=== PATIENT | female | born 1980 | race Caucasian/White ===

== ENCOUNTER → 2021-02-17 16:18 | Outpatient (BNVA) | payer SELFPAY | PROVIDERS: Family Provider Family Medicine; PCP Family Medicine; Visit Provider Family Medicine | DX: Z20.2 Contact with and (suspected) exposure to infections with a predominantly sexual mode of transmission (principal) | CPT/HCPCS: 87491; 87591; 87661 ==

== ENCOUNTER → 2021-06-04 10:33 | Outpatient (BNVA) | payer SELFPAY | PROVIDERS: Family Provider Family Medicine; PCP Family Medicine; Visit Provider Nurse Practitioner Family | DX: Z20.822 Contact with and (suspected) exposure to COVID-19 (principal); R05.9 Cough, unspecified | CPT/HCPCS: 87486; 87581; 87633 ==

== ENCOUNTER → 2021-08-19 14:40 | Outpatient (BNVA) | payer BC, SELFPAY | PROVIDERS: Family Provider Family Medicine; PCP Family Medicine; Visit Provider Family Medicine | DX: F90.9 Attention-deficit hyperactivity disorder, unspecified type (principal); Z13.1 Encounter for screening for diabetes mellitus; R53.83 Other fatigue; N92.6 Irregular menstruation, unspecified; Z13.6 Encounter for screening for cardiovascular disorders | CPT/HCPCS: 80053; 80061; 83001; 83002; 84443; 85025 ==

== ENCOUNTER → 2023-03-19 15:45 | Outpatient (BNVA) | payer OTHER, SELFPAY | PROVIDERS: Family Provider Family Medicine; PCP Family Medicine; Visit Provider Emergency Medicine | DX: R30.0 Dysuria (principal); N39.0 Urinary tract infection, site not specified; N12 Tubulo-interstitial nephritis, not specified as acute or chronic | CPT/HCPCS: 81000; 87077; 87086; 87184 ==

== ENCOUNTER 2023-04-11 12:49 | Emergency (ER) | payer OTHER, SELFPAY ==
[2023-04-11 13:08] VITALS: BP 99/69; PULSE 65; RESP 15; TEMP 36.7; O2SAT 100; BMI 31.7
--- NOTE | 2023-04-11 14:40 | ED_ITS ---
HPI - Abdominal Pain 2 General: Chief Complaint: Abdominal Pain Stated Complaint: abd pain Time Seen by Provider: 04/11/23 14:31 Source: patient Mode of arrival: ambulatory Limitations: no limitations History of Present Illness: Patient is a 42-year-old female with history of anxiety who presents to the emergency department complaining of urinary changes onset greater than a week. Patient states she was recently treated for UTI a few weeks ago and when she was diagnosed Bactrim and has since finished the regimen. Upon review of her recent provider notes, she was diagnosed with pyelonephritis despite not having any imaging. Culture resulted in E. coli. She now reports that she is having continuing suprapubic pain associated with continued urinary urgency and burning with urination. She is also now reporting a headache with associated ear pain and jaw pain. She is also complaining of fatigue. She says she has had a normal appetite and has been hydrating well. She denies any blood in her urine or foul odor. She further denies any chest pain, breathing difficulty, palpitations, or any other symptoms. She states that she did have 2 episodes last night of presyncope where she got dizzy and lightheaded, stating that the room was spinning around her. MD elicited complaint: abdominal pain Pertinent past history: past UTI Onset (ago): week(s) Pain Consistency: constant Location: Suprapubic Associated Symptoms: Reports dysuria and nausea; Denies chills, constipation, diarrhea, fever(s), hematuria and vomiting Related Data: Date of Last Menstrual Period: 02/28/23 Review of Systems 2 Const: Reports: fatigue; Denies: fever(s), chills or change in appetite Eyes: Denies: change in vision or blurry vision ENMT: Reports: ear or mastoid pain and other (jaw pain) Card: Reports: lightheadedness; Denies: chest pain or palpitations Resp: Denies: dyspnea or non-productive cough GI: Reports: abdominal pain and nausea; Denies: vomiting, diarrhea or constipation : Reports: dysuria, urinary frequency and urinary urgency; Denies: flank pain or hematuria Musc: Denies: neck pain or back pain Skin/Breast: Denies: rash Neuro: Reports: headache(s) and dizziness [facility] ED 2 PFSH: Medical History Adult ADHD Surgical History History of cholecystectomy 2019 History of tubal ligation 2008 Social History Smoking and tobacco/nicotine status: never used tobacco/nicotine Alcohol intake: never Substance/Drug Use: never Adopted: No Caregiver/support person: No Lives independently: No Household members: children service: No Current occupational status: employed Sexually active: Yes Do you think of yourself as: Straight/Heterosexual Current gender identity: Female Female Reproductive History: Date of last menstrual period: 02/28/23 Physical Exam 2 Const: COMMON NORMALS: no acute distress GENERAL APPEARANCE: cooperative and comfortable ORIENTATION/CONSCIOUSNESS: Yes awake, Yes oriented to person, Yes oriented to place and Yes oriented to time HENMT: COMMON NORMALS: normocephalic, atraumatic and hearing grossly normal bilaterally HEAD & SCALP: normocephalic and atraumatic FACE & SINUS: n ormal facial exam MOUTH: Normal oral and palatal mucosa present Resp: COMMON NORMALS: normal respiratory effort, No retractions, No use of accessory muscles and clear to auscultation bilaterally AUSCULTATION: clear to auscultation bilaterally Cardio: COMMON NORMALS: regular rate, regular rhythm and No murmurs present (Cardio) RATE: regular rate RHYTHM: regular rhythm GI: COMMON NORMALS: Soft to palpation and No hepatosplenomegaly present A USCULTATION: Yes normoactive bowel sounds PALPATION: Yes Soft to palpation, Yes Tenderness to palpation present (GI) (mild suprapubic TTP), No Guarding due to palpation present (GI) and Yes No hepatosplenomegaly present : COMMON NORMALS: Yes no CVA tenderness BLADDER/KIDNEY EXAM: Yes no CVA tenderness Back/Pelvis: COMMON NORMALS: no CVA tenderness Extremity: COMMON NORMALS: normal to inspection, capillary refill normal, no clubbing, cyanosis or edema, no calf tenderness and no pedal edema Neuro: SENSORIUM/ORIENTATION: Yes oriented to person, Yes oriented to place and Yes oriented to time Skin: COMMON NORMALS: no rashes or lesions noted GENERAL SKIN EXAM: no rashes or lesions noted Course 2 Vital Signs: Vital signs: Vital Signs Temperature 98.1 F 04/11/23 13:08 Pulse Rate 67 04/11/23 16:55 Respiratory Rate 18 04/11/23 16:55 Blood Pressure 105/72 04/11/23 16:55 Pulse Oximetry 99 04/11/23 16:55 Oxygen Delivery Me thod Room Air 04/11/23 15:10 MDM - Abdominal Pain Medical Decision Making No cystitis on UA. She does have some orthostasis is improved with IV fluids. Discharge home recommend she follow-up with her primary care doctor within the next week return if has further problems. Medical Records I reviewed the patient's medical records. Lab Data I reviewed the patient's lab results. 04/11/23 15:00 04/11/23 15:00 Labs/Radiology: Laboratory Results WBC 5.55 10^3/uL (3.29-11.43) 04/11/23 15:00 RBC 4.12 10^6/uL (3.85-5.65) 04/11/23 15:00 Hgb 13.30 g/dL (11.27-16.99) 04/11/23 15:00 Hct 40.9 % (36-47) 04/11/23 15:00 MCV 99.3 fl (85-98) H 04/11/23 15:00 MCH 32.3 pg (27-33) 04/11/23 15:00 MCHC 32.5 g/dL (30-55) 04/11/23 15:00 RDW 13.0 % (12.1-15.1) 04/11/23 15:00 Plt Count 297 10^3/cmm (157-399) 04/11/23 15:00 MPV 10.1 fL (7.4-10.4) 04/11/23 15:00 Neut % (Auto) 48.9 % 04/11/23 15:00 Lymph % (Auto) 39.5 % 04/11/23 15:00 [place] % (Auto) 9.5 % 04/11/23 15:00 Eos % (Auto) 1.3 % 04/11/23 15:00 Baso % (Auto) 0.4 % 04/11/23 15:00 Neut # (Auto) 2.72 10^3/uL (1.8-7.7) 04/11/23 15:00 Lymph # (Auto) 2.2 10^3/uL (0.8-4.8) 04/11/23 15:00 [place] # (Auto) 0.5 10^3/uL (0.2-0.9) 04/11/23 15:00 Eos # (Auto) 0.1 10^3/uL (0.0-0.8) 04/11/23 15:00 Baso # (Auto) 0.0 10^3/uL (0.0-0.1) 04/11/23 15:00 Nucleated RBC % (auto) 0 % 04/11/23 15:00 Nucleated RBCs # 0.0 /100WBC 04/11/23 15:00 Sodium 139 mmol/L (136-145) 04/11/23 15:00 Potassium 4.0 mmol/L (3.5-5.1) 04/11/23 15:00 Chloride 105 mmol/L (98-107) 04/11/23 15:00 Carbon Dioxide 23 mmol/L (22-29) 04/11/23 15:00 Anion Gap 15.0 (5-19) 04/11/23 15:00 BUN 8 mg/dL (6-20) 04/11/23 15:00 Creatinine 0.9 mg/dL (0.5-0.9) 04/11/23 15:00 GFR Calculation 68.3 mL/min (90-130) L 04/11/23 15:00 Glucose 103 mg/dL (65-115) 04/11/23 15:00 Calculated Osmolality 287 mOsm/kg (285-295) 04/11/23 15:00 Calcium 9.1 mg/dL (8.5-10.5) 04/11/23 15:00 Total Bilirubin 0.2 mg/dL (0.15-1.2) 04/11/23 15:00 AST 12 U/L (0-32) 04/11/23 15:00 ALT 26 U/L (0-33) 04/11/23 15:00 Alkaline Phosphatase 91 U/L (35-105) 04/11/23 15:00 Total Protein 6.9 g/dL (6.6-8.7) 04/11/23 15:00 Albumin 4.1 g/dL (3.5-5.2) 04/11/23 15:00 Globulin 2.8 g/dL (1.3-4.6) 04/11/23 15:00 Lipase 24 U/L (13-60) 04/11/23 15:00 HCG, Qual Negative (Negative) 04/11/23 15:00 Urine Color Light yellow (Yellow) 04/11/23 15:29 Urine Appearance Clear (CLEAR) 04/11/23 15:29 Urine pH 5 (5-7) 04/11/23 15:29 Ur Specific [place] 1.015 (1.005-1.030) 04/11/23 15:29 Urine Protein Neg (Negative) 04/11/23 15:29 Urine Glucose (UA) Norm (Normal) 04/11/23 15:29 Urine Ketones Negative (Negative) 04/11/23 15: Urine Blood Neg (Negative) 04/11/23 15: Urine Nitrate Negative (Negative) 04/11/23 15:29 Urine Bilirubin Neg (Negative) 04/11/23 15:29 Urine Urobilinogen Norm mg/dL (Negative) 04/11/23 15:29 Ur Leukocyte Esterase Negative (Negative) 04/11/23 15:29 No radiology studies performed this visit Discharge Plan Discharge Patient Disposition: Home Clinical Impression: Orthostasis Condition: Stable Prescriptions: No Action fluticasone propionate [Flonase Allergy Relief] 50 mcg/actuation spray,suspension 1 spray INTRANASAL BID [id number] [Fioricet] 50-300-40 mg capsule 1 cap PO Q8H PRN cyclobenzaprine 10 mg tablet 10 mg PO dextroamphetamine-amphetamine 10 mg tablet 10 mg PO hydroxyzine HCl 25 mg tablet 50 mg PO zolpidem 10 mg tablet 10 mg PO sertraline 50 mg tablet 50 mg PO phenazopyridine [Pyridium] 200 mg tablet 200 mg PO Q8H PRN (Reason: pain) Qty: 6 0RF sulfamethoxazole-trimethoprim [Bactrim DS] 800-160 mg tablet 1 tab PO BID 10 Days Qty: 20 0RF ondansetron 8 mg tablet,disintegrating 8 mg PO Q8H PRN (Reason: nausea and vomiting) 3 Days Qty: 9 0RF tizanidine 4 mg capsule See Rx Instructions .ROUTE .COMPLEX Qty: 60 0RF Dose Instruction: TAKE 1 CAPSULE BY MOUTH TWICE DAILY NEEDED FOR MUSCLE SPASMS Rx Instructions: TAKE 1 CAPSULE BY MOUTH TWICE DAILY NEEDED FOR MUSCLE SPASMS ondansetron 4 mg tablet,disintegrating 4 mg PO Q6H PRN (Reason: nausea and vomiting) Qty: 14 0RF Discharge Orders: Discharge ED (Routine); Ordered 04/11/23 Ordered By: Kevin Tavera Referrals: Dominic Rea DO [Primary Care Provider] - Discharge Diet: Usual diet Discharge Activity: Increase activity as tolerated Patient Instructions: Opioid Safety, Pain Management Activity Restrictions/Additional Instructions: Thank you for choosing [facility] for your healthcare needs today. Please realize this is an emergency room and that we are providing you with a medical screening exam and this may not be complete and all inclusive of all the testing and or work up that you may need to determine your ailment or severity of your illness. It is very important that you follow up as instructed or that you return to the Emergency Department should you have concerns or if your condition changes or worsens in any way. You were seen today for weakness generalized not feeling well migraine. There is no evidence of UTI your laboratory studies were normal. Initial evaluation your blood pressure did drop when you stood but that improved after IV fluids were given. At this point there is no emergent condition recommend you follow- up with your primary care doctor within the next week. Coding Level of Care Code ED Resident Services Coordinator for Aldo Miller
[2023-04-11 14:48] VITALS: BP 103/63; PULSE 60; RESP 18; O2SAT 100
[2023-04-11 15:07] LABS: Basophils % 0.4 %; Eosinophils # 0.1 10^3/uL (0.0-0.8); Eosinophils % 1.3 %; Hematocrit 40.9 % (36-47); Lymphocytes # 2.2 10^3/uL (0.8-4.8); Lymphocytes % 39.5 %; Mean Corpuscular HGB Conc 32.5 g/dL (30-55); Mean Corpuscular Hemoglobin 32.3 pg (27-33); Mean Corpuscular Volume 99.3 fl (85-98); Mean Platelet Volume 10.1 fL (7.4-10.4); Monocytes # 0.5 10^3/uL (0.2-0.9); Monocytes % 9.5 %; Neutrophils # 2.72 10^3/uL (1.8-7.7); Neutrophils % 48.9 %; Nucleated Red Blood Cells % 0 %; Platelet Count 297 10^3/cmm (157-399); Red Blood Count 4.12 10^6/uL (3.85-5.65); White Blood Count 5.55 10^3/uL (3.29-11.43)
[2023-04-11 15:10] VITALS: BP 93/61; PULSE 78; RESP 18; O2SAT 100
[2023-04-11 15:34] LABS: HCG, Serum Qual Negative (Negative)
[2023-04-11 15:36] LABS: Add Urine Microscopic? NO; Charge for UA Resulting for Rev
[2023-04-11 15:44] LABS: Alanine Aminotransferase 26 U/L (0-33); Albumin Level 4.1 g/dL (3.5-5.2); Alkaline Phosphatase 91 U/L (35-105); Aspartate Amino Transferase 12 U/L (0-32); Blood Urea Nitrogen 8 mg/dL (6-20); Calcium 9.1 mg/dL (8.5-10.5); Carbon Dioxide 23 mmol/L (22-29); Chloride 105 mmol/L (98-107); Globulin 2.8 g/dL (1.3-4.6); Glomerular Filtration Rate 68.3 mL/min (90-130); Glucose 103 mg/dL (65-115); Lipase 24 U/L (13-60); Osmolality Calculated 287 mOsm/kg (285-295); Sodium 139 mmol/L (136-145); Total Bilirubin 0.2 mg/dL (0.15-1.2); Total Protein 6.9 g/dL (6.6-8.7)
[2023-04-11 15:45] LABS: Urine Color Light yellow (Yellow)
[2023-04-11] MEDS: sodium chloride 0.9% 1,000 ML 999 ML IV ×2 (15:45→17:15)
[2023-04-11 15:46] LABS: Bilirubin Urine Neg (Negative); Blood Urine Neg (Negative); Glucose Urine UA Norm (Normal); Ketones Urine Negative (Negative); Leukocyte Esterase Urine Negative (Negative); Nitrate Urine Negative (Negative); Protein Urine Neg (Negative); Specific Gravity, Urine 1.015 (1.005-1.030); Urine Appearance Clear (CLEAR); Urobilinogen Urine Norm (Negative); pH Urine 5 (5-7)
[2023-04-11 16:54] VITALS: BP 105/72; BP 86/56; BP 97/62; PULSE 67; PULSE 78
[2023-04-11 16:55] VITALS: BP 105/72; PULSE 67; RESP 18; O2SAT 99
== END 2023-04-11 17:57 | disposition home or self-care (01) ==
PROVIDERS: Physician Assistant; Emergency Provider Family Medicine; PCP Family Medicine
DX: I95.1 Orthostatic hypotension (principal)
CPT/HCPCS: 36415; 80053; 81003; 83690; 84703; 85025; 99284; J7030

== ENCOUNTER 2023-04-14 02:53 | Emergency (ER) | payer OTHER, SELFPAY ==
[2023-04-14 03:00] VITALS: BMI 30.7
--- NOTE | 2023-04-14 03:07 | W.ED.NAVMDI ---
HPI - Nausea/Vomiting/Diarrhea General: Chief complaint: Nausea/Vomiting/Diarrhea Stated complaint: Vomiting\Shakey Time Seen by Provider: 04/14/23 03:01 Source: patient Mode of arrival: ambulatory Limitations: no limitations History of Present Illness: 42-year-old female states she has had nausea and vomiting over the last 2 to 3 days. She states she has had constant vomiting feels like she is dehydrated has not been able to keep anything down. She is also had a mild headache states she is she is felt like her hearts been racing as well she denies any chest pain denies any shortness of breath. States she had vomited once today and had a slight amount of blood in it. Associated nausea: Yes Associated symtoms: Reports headache(s) and nausea; Denies chest pain or dysuria Review of Systems Const: Denies: fever(s), chills, body aches or change in appetite Eyes: Denies: blurry vision or eye discomfort ENMT: Denies: throat pain or dental pain Card: Denies: chest pain Resp: Denies: dyspnea GI: Reports: nausea and vomiting; Denies: diarrhea : Denies: dysuria Musc: Denies: neck pain or back pain Skin/Breast: Denies: rash Neuro: Reports: headache(s) PFSH ED PFSH: Medical History Adult ADHD Surgical History History of cholecystectomy 2019 History of tubal ligation 2008 Social History Smoking and tobacco/nicotine status: never used tobacco/nicotine Alcohol intake: never Substance/Drug Use: never Adopted: No Caregiver/support person: No Lives independently: No Household members: children service: No Current occupational status: employed Sexually active: Yes Do you think of yourself as: Straight/Heterosexual Current gender identity: Female Physical Exam Const: COMMON NORMALS: no acute distress, patient oriented x3 and healthy appearing HENMT: COMMON NORMALS: normocephalic and atraumatic HEAD & SCALP: normocephalic and atraumatic Eye: COMMON NORMALS: conjunctivae normal CONJUNCTIVA: Yes conjunctivae normal Neck/C-Spine: COMMON NORMALS: full ROM and supple Chest: COMMONS NORMALS: normal inspection of the chest and normal palpation of entire chest wall Resp: COMMON NORMALS: normal respiratory effort, No retractions, No use of accessory muscles and clear to auscultation bilaterally AUSCULTATION: clear to auscultation bilaterally Cardio: COMMON NORMALS: regular rhythm and No murmurs present (Cardio) RATE: tachycardic RHYTHM: regular rhythm GI: COMMON NORMALS: Normal to inspection, nondistended, normoactive bowel sounds present, Soft to palpation, non-tender and no masses PALPATION: Yes Soft to palpation Extremity: COMMON NORMALS: normal to inspection and full ROM Neuro: COMMON NORMALS: patient oriented x3, moves all extremities and no focal motor deficits Psych: COMMON NORMALS: mental status grossly normal, Normal thought process present and cooperative THOUGHT PROCESS: Normal thought process present Skin: COMMON NORMALS: no rashes or lesions noted and no wounds GENERAL SKIN EXAM: no rashes or lesions noted Course Vital Signs: Vital signs: Vital Signs Temperature 98.0 F 04/14/23 03:24 Pulse Rate 127 H 04/14/23 03:08 Respiratory Rate 17 04/14/23 03:08 Blood Pressure 149/98 04/14/23 03:08 Pulse Oximetry 100 04/14/23 03:08 MDM - Nausea/Vomiting/Diarrhea Medical Decision Making Patient presents here with nausea vomiting she feels much improved here after Reglan and Benadryl her heart rates improved to is now in the 90s blood works normal abdominal exam is benign we will prescribe her Zofran for home she is to follow-up and return if worsening. Medical Records I reviewed the patient's medical records. Lab Data I reviewed the patient's lab results. 04/14/23 03:13 04/14/23 03:13 Laboratory Results WBC 10.34 10^3/uL (3.29-11.43) 04/14/23 03:13 RBC 4.96 10^6/uL (3.85-5.65) 04/14/23 03:13 Hgb 15.90 g/dL (11.27-16.99) 04/14/23 03:13 Hct 46.0 % (36-47) 04/14/23 03:13 MCV 92.7 fl (85-98) 04/14/23 03:13 MCH 32.1 pg (27-33) 04/14/23 03:13 MCHC 34.6 g/dL (30-55) 04/14/23 03:13 RDW 13.2 % (12.1-15.1) 04/14/23 03:13 Plt Count 416 10^3/cmm (157-399) H 04/14/23 03:13 MPV 10.0 fL (7.4-10.4) 04/14/23 03:13 Neut % (Auto) 74.5 % 04/14/23 03:13 Lymph % (Auto) 16.0 % 04/14/23 03:13 [place] % (Auto) 9.1 % 04/14/23 03:13 Eos % (Auto) 0.0 % 04/14/23 03:13 Baso % (Auto) 0.1 % 04/14/23 03:13 Neut # (Auto) 7.71 10^3/uL (1.8-7.7) H 04/14/23 03:13 Lymph # (Auto) 1.7 10^3/uL (0.8-4.8) 04/14/23 03:13 [place] # (Auto) 0.9 10^3/uL (0.2-0.9) 04/14/23 03:13 Eos # (Auto) 0.0 10^3/uL (0.0-0.8) 04/14/23 03:13 Baso # (Auto) 0.0 10^3/uL (0.0-0.1) 04/14/23 03:13 Nucleated RBC % (auto) 0 % 04/14/23 03:13 Nucleated RBCs # 0.0 /100WBC 04/14/23 03:13 Sodium 143 mmol/L (136-145) 04/14/23 03:13 Potassium 3.7 mmol/L (3.5-5.1) 04/14/23 03:13 Chloride 99 mmol/L (98-107) 04/14/23 03:13 Carbon Dioxide 23 mmol/L (22-29) 04/14/23 03:13 Anion Gap 24.7 (5-19) H 04/14/23 03:13 BUN 7 mg/dL (6-20) 04/14/23 03:13 Creatinine 1.0 mg/dL (0.5-0.9) H 04/14/23 03:13 GFR Calculation 60.5 mL/min (90-130) L 04/14/23 03:13 Glucose 126 mg/dL (65-115) H 04/14/23 03:13 Calculated Osmolality 296 mOsm/kg (285-295) H 04/14/23 03:13 Calcium 9.8 mg/dL (8.5-10.5) 04/14/23 03:13 Total Bilirubin 0.2 mg/dL (0.15-1.2) 04/14/23 03:13 AST 22 U/L (0-32) 04/14/23 03:13 ALT 27 U/L (0-33) 04/14/23 03:13 Alkaline Phosphatase 109 U/L (35-105) H 04/14/23 03:13 Total Protein 8.2 g/dL (6.6-8.7) 04/14/23 03:13 Albumin 4.8 g/dL (3.5-5.2) 04/14/23 03:13 Globulin 3.4 g/dL (1.3-4.6) 04/14/23 03:13 Lipase 22 U/L (13-60) 04/14/23 03:13 No radiology studies performed this visit Discharge Plan Discharge Patient Disposition: Home Clinical Impression: Vomiting Condition: Stable Prescriptions: New ondansetron 4 mg tablet,disintegrating 4 mg PO Q6H PRN (Reason: nausea and vomiting) Qty: 14 0RF No Action fluticasone propionate [Flonase Allergy Relief] 50 mcg/actuation spray,suspension 1 spray INTRANASAL BID [id number] [Fioricet] 50-300-40 mg capsule 1 cap PO Q8H PRN cyclobenzaprine 10 mg tablet 10 mg PO dextroamphetamine-amphetamine 10 mg tablet 10 mg PO hydroxyzine HCl 25 mg tablet 50 mg PO zolpidem 10 mg tablet 10 mg PO sertraline 50 mg tablet 50 mg PO phenazopyridine [Pyridium] 200 mg tablet 200 mg PO Q8H PRN (Reason: pain) Qty: 6 0RF sulfamethoxazole-trimethoprim [Bactrim DS] 800-160 mg tablet 1 tab PO BID 10 Days Qty: 20 0RF ondansetron 8 mg tablet,disintegrating 8 mg PO Q8H PRN (Reason: nausea and vomiting) 3 Days Qty: 9 0RF tizanidine 4 mg capsule See Rx Instructions .ROUTE .COMPLEX Qty: 60 0RF Dose Instruction: TAKE 1 CAPSULE BY MOUTH TWICE DAILY NEEDED FOR MUSCLE SPASMS Rx Instructions: TAKE 1 CAPSULE BY MOUTH TWICE DAILY NEEDED FOR MUSCLE SPASMS Discharge Orders: Discharge ED (Routine); Ordered 04/14/23 Ordered By: María Davidson Referrals: Dominic Rea DO [Primary Care Provider] - 1-3 days Discharge Diet: Advance as tolerated Discharge Activity: Resume usual activity Patient Instructions: Acute Nausea and Vomiting (ED) Coding Level of Care Code ED Paper Sales Manager for Aldo Miller
[2023-04-14 03:08] VITALS: BP 149/98; PULSE 127; RESP 17; O2SAT 100
[2023-04-14] MEDS: metoclopramide 5 mg/mL SDV 2 mL 10 MG IVP (03:17)
[2023-04-14] MEDS: diphenhydrAMINE 50 mg/mL SDV 1mL IVP (03:18)
[2023-04-14 03:20] LABS: Basophils % 0.1 %; Lymphocytes # 1.7 10^3/uL (0.8-4.8); Mean Corpuscular HGB Conc 34.6 g/dL (30-55); Mean Corpuscular Hemoglobin 32.1 pg (27-33); Mean Corpuscular Volume 92.7 fl (85-98); Monocytes # 0.9 10^3/uL (0.2-0.9); Monocytes % 9.1 %; Neutrophils # 7.71 10^3/uL (1.8-7.7); Neutrophils % 74.5 %; Nucleated Red Blood Cells % 0 %; Platelet Count 416 10^3/cmm (157-399); Red Blood Count 4.96 10^6/uL (3.85-5.65); Red Cell Distribution Width 13.2 % (12.1-15.1); White Blood Count 10.34 10^3/uL (3.29-11.43)
[2023-04-14 03:24] VITALS: TEMP 36.7
[2023-04-14 03:39] LABS: Albumin Level 4.8 g/dL (3.5-5.2); Alkaline Phosphatase 109 U/L (35-105); Blood Urea Nitrogen 7 mg/dL (6-20); Calcium 9.8 mg/dL (8.5-10.5); Carbon Dioxide 23 mmol/L (22-29); Chloride 99 mmol/L (98-107); Globulin 3.4 g/dL (1.3-4.6); Glomerular Filtration Rate 60.5 mL/min (90-130); Glucose 126 mg/dL (65-115); Lipase 22 U/L (13-60); Osmolality Calculated 296 mOsm/kg (285-295); Sodium 143 mmol/L (136-145); Total Bilirubin 0.2 mg/dL (0.15-1.2); Total Protein 8.2 g/dL (6.6-8.7)
[2023-04-14] MEDS: sodium chloride 0.9% 1,000 ML 999 ML IV (03:41)
[2023-04-14 03:46] LABS: Alanine Aminotransferase 27 U/L (0-33); Anion Gap 24.7 (5-19); Aspartate Amino Transferase 22 U/L (0-32); Potassium 3.7 mmol/L (3.5-5.1)
[2023-04-14] MEDS: ketorolac 30 mg/mL INJ 15 MG IVP (05:09)
[2023-04-14 05:34] VITALS: BP 111/76; PULSE 91; RESP 14; O2SAT 100
== END 2023-04-14 05:56 | disposition home or self-care (01) ==
PROVIDERS: Emergency Provider Emergency Medicine; PCP Family Medicine
DX: R11.11 Vomiting without nausea (principal)
CPT/HCPCS: 80053; 83690; 85025; 96361; 96374; 96375; 99284; J1200; J1885; J2765; J7030

== ENCOUNTER → 2023-06-21 10:23 | Outpatient (BNVA) | payer OTHER, SELFPAY | PROVIDERS: PCP Family Medicine; Visit Provider Nurse Practitioner Family | DX: J06.9 Acute upper respiratory infection, unspecified (principal) | CPT/HCPCS: 87400 ==

== ENCOUNTER 2024-09-18 10:38 | Emergency (ER) | payer MEDICAID, SELFPAY ==
--- NOTE | 2024-09-18 10:40 | CT_ITS ---
WS: [id number] CT HEAD NONCONTRAST HISTORY: Symptoms of acute stroke TECHNIQUE: Contiguous axial imaging performed through the brain. Bone and soft tissue windows. Sagittal and coronal reformats reviewed. All CT scans at [facility] use at least one of these dose optimization techniques: automated exposure control; mA and/or kV adjustment per patient size (includes targeted exams where dose is matched to clinical indication); or iterative reconstruction. DLP: 980.33 mGy COMPARISON: 03/30/2012 No acute intracranial hemorrhage, midline shift or mass effect. No atrophy or prior infarcts or herniation. Ventricles: Normal size with no hydrocephalus. Paranasal sinuses: As visualized are clear. Mastoid air cells: Well pneumatized. Calvarium and scalp: Skull is intact with no soft tissue edema or swelling. CT/CT head thrombolytic [id number] IMPRESSION: Negative head CT. Notified Kevin Tavera DO at 09/18/2024 10:52 AM.
--- NOTE | 2024-09-18 10:47 | W.ED.NEUROSD ---
HPI - Neuro Symptoms/Deficit General: Chief Complaint: Neuro Symptoms/Deficit Stated Complaint: Stroke Alert Time Seen by Provider: 09/18/24 10:38 History of Present Illness: 44-year-old female presents emergency room as a stroke alert. Last known well was 8 AM after she had driven where she was found around 9:45 AM by coworkers. She presents to the emergency room 2 hours and 40 minutes after her last known well time. She is not on any anticoagulants. She complained of some left-sided symptoms including weakness and loss of sensation. EMS also reported difficulty with slurred speech. Patient reports she has had headache the last couple days she does have chronic migraine she took 2 Fioricet just prior to going to work this morning she did not meet difficulty going to work but after she went to work she was found slumped over on her desk. Associated symptoms: Reports headache(s); Deny chest pain Related Data Home Medications ?Medication ?Instructions ?Recorded ?Confirmed yrcgbtuhkg-nkhkaqkcfdwjd-xrewtmit 1 cap PO Q4H PRN Migraine Headache 08/14/19 09/18/24 50 mg-300 mg-40 mg capsule (Fioricet) zolpidem 10 mg tablet 10 mg PO DAILY 03/19/23 09/18/24 aripiprazole 2 mg tablet 2 mg PO DAILY 09/18/24 09/18/24 dextroamphetamine-amphetamine 30 30 mg PO BID 09/18/24 09/18/24 mg tablet duloxetine 60 mg capsule,delayed 120 mg PO DAILY 09/18/24 09/18/24 release hydroxyzine HCl 25 mg tablet 25 mg PO TID 09/18/24 09/18/24 tizanidine 4 mg tablet 4 mg PO Q6H 09/18/24 09/18/24 topiramate 50 mg tablet 50 mg PO BID 09/18/24 09/18/24 tramadol 50 mg tablet 50 mg PO Q8H 09/18/24 09/18/24 Allergies Allergy/AdvReac Type Severity Reaction Status Date / Time doxycycline Allergy Unknown unknown Verified 08/08/23 10:28 levofloxacin (From Levaquin) Allergy Unknown unknown Verified 08/08/23 10:28 Review of Systems Const: Denies: fever(s) or chills Card: Denies: chest pain Resp: Denies: dyspnea GI: Denies: abdominal pain : Denies: dysuria, urinary frequency or urinary urgency Musc: Denies: neck pain or back pain Skin/Breast: Denies: rash Neuro: Reports: headache(s) PFSH ED PFSH: Medical History Adult ADHD Surgical History History of tubal ligation 2009 History of cholecystectomy 2019 Social History Smoking and tobacco/nicotine status: never used tobacco/nicotine Alcohol intake: never Substance/Drug Use: never Adopted: No Caregiver/support person: No Lives independently: No Household members: children service: No Current occupational status: employed Sexually active: Yes Do you think of yourself as: Straight/Heterosexual Current gender identity: Female NIH stroke score NIHSS: Level Of Consciousness - 1a: 0 Level Of Consciousness Questions - 1b: Both Correct Level Of Consciousness Commands - 1c: Both Correct Best Gaze - 2: Normal Visual Nathan - 3: No Visual Loss Facial Palsy - 4: Normal Motor Arm Right - 5: No Drift Motor Arm Left - 5: No Drift Motor Leg Right - 6: No Drift Motor Leg Left - 6: No Drift Limb Ataxia - 7: Absent Sensory - 8: Mild To Moderate Loss Best Language - 9: No Aphasia Dysarthia - 10: Normal Extinction And Inattention - 11: 0 Score: Total Score: 1 Physical Exam Const: GENERAL APPEARANCE: cooperative ORIENTATION/CONSCIOUSNESS: Yes awake, Yes oriented to person, Yes oriented to place and Yes oriented to time HENMT: COMMON NORMALS: normocephalic, atraumatic and hearing grossly normal bilaterally HEAD & SCALP: normocephalic and atraumatic Resp: COMMON NORMALS: normal respiratory effort, No retractions, No use of accessory muscles and clear to auscultation bilaterally AUSCULTATION: clear to auscultation bilaterally Cardio: COMMON NORMALS: regular rate, regular rhythm and No murmurs present (Cardio) RATE: regular rate RHYTHM: regular rhythm GI: COMMON NORMALS: Soft to palpation and No hepatosplenomegaly present AUSCULTATION: Yes normoactive bowel sounds PALPATION: Yes Soft to palpation, No Tenderness to palpation present (GI), No Guarding due to palpation present (GI) and Yes No hepatosplenomegaly present Extremity: COMMON NORMALS: normal to inspection, capillary refill normal, no clubbing, cyanosis or edema, no calf tenderness and no pedal edema Neuro: SENSORIUM/ORIENTATION: Yes oriented to person, Yes oriented to place and Yes oriented to time Skin: COMMON NORMALS: no rashes or lesions noted GENERAL SKIN EXAM: no rashes or lesions noted Course Vital Signs: Vital signs: Vital Signs Temperature 97.9 F 09/18/24 10:48 Pulse Rate 79 09/18/24 13:15 Respiratory Rate 14 09/18/24 13:02 Blood Pressure 128/77 09/18/24 13:15 Pulse Oximetry 100 09/18/24 13:15 Oxygen Delivery Me thod Room Air 09/18/24 10:48 MDM - Neuro Symptoms/Deficit Medical Decision Making Stroke score initially seen the patient in the CT suite was low we did not completed it entirely but only got 1 for decrease sensation. Repeated the full NIH when she returned to the trauma bay she has an NIH of 1 with decreased sensation on the left side of her face and her left hand but not on her forehead or not on her left leg. In talking to her she has had a headache for the last couple of days she took 2 Fioricet just before going to work. Reviewing her other medications nearly all of her medications have the potential for sedation. Discussed with Dr. Fragoso who is on-call for stroke at this point neither of us believe that this is an acute CVA appears to be more of a migraine variant and likely side effects of medications. Will give her Depacon for her headache. Patient good result., All of her symptoms have resolved. she has no deficiets, Sedation sympotms are gone and her headache is resolved. Discussed with Dr. Fragoso she concurs. Will discharge patient home. discussed labs wiht her, THe drug screen results are consistent with her prescription meds. Medical Records I reviewed the patient's medical records. Lab Data I reviewed the patient's lab results. 09/18/24 10:51 09/18/24 10:[address] 09/18/24 10:40 IMPRESSION: Negative head CT. Notified Kevin Tavera DO at 09/18/2024 10:52 AM. Laboratory Results WBC 6.27 10^3/uL (3.29-11.43) 09/18/24 10:51 RBC 4.03 10^6/uL (3.85-5.65) 09/18/24 10:51 Hgb 13.10 g/dL (11.27-16.99) 09/18/24 10:51 Hct 40.0 % (36-47) 09/18/24 10:51 MCV 99.3 fl (85-98) H 09/18/24 10:51 MCH 32.5 pg (27-33) 09/18/24 10:51 MCHC 32.8 g/dL (30-55) 09/18/24 10:51 RDW 13.4 % (12.1-15.1) 09/18/24 10:51 Plt Count 296 10^3/cmm (157-399) 09/18/24 10:51 MPV 9.7 fL (7.4-10.4) 09/18/24 10:51 Neut % (Auto) 60.5 % 09/18/24 10:51 Lymph % (Auto) 26.8 % 09/18/24 10:51 [place] % (Auto) 8.9 % 09/18/24 10:51 Eos % (Auto) 3.2 % 09/18/24 10:51 Baso % (Auto) 0.3 % 09/18/24 10:51 Neut # (Auto) 3.79 10^3/uL (1.8-7.7) 09/18/24 10:51 Lymph # (Auto) 1.7 10^3/uL (0.8-4.8) 09/18/24 10:51 [place] # (Auto) 0.6 10^3/uL (0.2-0.9) 09/18/24 10:51 Eos # (Auto) 0.2 10^3/uL (0.0-0.8) 09/18/24 10:51 Baso # (Auto) 0.0 10^3/uL (0.0-0.1) 09/18/24 10:51 Nucleated RBC % (auto) 0 % 09/18/24 10:51 Nucleated RBCs # 0.0 /100WBC 09/18/24 10:51 PT 12.30 SECONDS (12.1-14.9) 09/18/24 10:51 INR 0.85 (0.8-1.2) 09/18/24 10:51 APTT 21.2 SECONDS (23.9-36.7) L 09/18/24 10:51 Sodium 144 mmol/L (136-145) 09/18/24 10:51 Potassium 3.0 mmol/L (3.5-5.1) L 09/18/24 10:51 Chloride 104 mmol/L (98-107) 09/18/24 10:51 Carbon Dioxide 28 mmol/L (22-29) 09/18/24 10:51 Anion Gap 15.0 (5-19) 09/18/24 10:51 BUN 9 mg/dL (6-20) 09/18/24 10:51 Creatinine 0.6 mg/dL (0.5-0.9) 09/18/24 10:51 GFR Calculation 108.1 mL/min (90-130) 09/18/24 10:51 Glucose 93 mg/dL (65-115) 09/18/24 10:51 POC Glucose 103 mg/dL (70-110) 09/18/24 10:50 Calculated Osmolality 296 mOsm/kg (285-295) H 09/18/24 10:51 Calcium 9.2 mg/dL (8.5-10.5) 09/18/24 10:51 Total Bilirubin 0.2 mg/dL (0.15-1.2) 09/18/24 10:51 AST 15 U/L (0-32) 09/18/24 10:51 ALT 20 U/L (0-33) 09/18/24 10:51 Alkaline Phosphatase 134 U/L (35-105) H 09/18/24 10:51 Total Protein 6.8 g/dL (6.6-8.7) 09/18/24 10:51 Albumin 4.2 g/dL (3.5-5.2) 09/18/24 10:51 Globulin 2.6 g/dL (1.3-4.6) 09/18/24 10:51 Urine Color Yellow (Yellow) 09/18/24 11:21 Urine Appearance Clear (CLEAR) 09/18/24 11:21 Urine pH 5.5 (5-7) 09/18/24 11:21 Ur Specific [place] 1.016 (1.005-1.030) 09/18/24 11:21 Urine Protein Negative (Negative) 09/18/24 11:21 Urine Glucose (UA) Negative (Normal) 09/18/24 11:21 Urine Ketones Negative (Negative) 09/18/24 11:21 Urine Blood Negative (Negative) 09/18/24 11:21 Urine Nitrate Negative (Negative) 09/18/24 11:21 Urine Bilirubin Negative (Negative) 09/18/24 11:21 Urine Urobilinogen 0.2 mg/dL (Negative) 09/18/24 11:21 Ur Leukocyte Esterase Negative (Negative) 09/18/24 11:21 Urine RBC 0-2 /hpf (0-2) 09/18/24 11:21 Urine WBC 0-5 /hpf (0-5) 09/18/24 11:21 Ur Squamous Epith Cells 0-5 /hpf (0-5) 09/18/24 11:21 Amorphous Sediment Not Reportable 09/18/24 11:21 Urine Bacteria 1+ /hpf (NONE) H 09/18/24 11:21 Hyaline Casts 0-4 /lpf H 09/18/24 11:21 Urine Opiates Screen Negative ng/mL (Negative) 09/18/24 11:21 Ur Barbiturates Screen Positive ng/mL (Negative) H 09/18/24 11:21 Ur Phencyclidine Scrn Negative ng/mL (Negative) 09/18/24 11:21 Ur Amphetamines Screen Positive ng/mL (Negative) H 09/18/24 11:21 U Benzodiazepines Scrn Negative ng/mL (Negative) 09/18/24 11:21 Urine Cocaine Screen Negative ng/mL (Negative) 09/18/24 11:21 U Marijuana (THC) Screen Negative ng/mL (Negative) 09/18/24 11:21 All radiology interpretation(s) finalized by discharge Discharge Plan Discharge Patient Disposition: Home Clinical Impression: Migraine variant, Medication side effect Condition: Stable Prescriptions: No Action orkbhfznsy-cvzbvzvdmdoau-peta [Fioricet] 50-300-40 mg capsule 1 cap PO Q4H PRN (Reason: Migraine Headache) zolpidem 10 mg tablet 10 mg PO DAILY tizanidine 4 mg tablet 4 mg PO Q6H tramadol 50 mg tablet 50 mg PO Q8H dextroamphetamine-amphetamine 30 mg tablet 30 mg PO BID hydroxyzine HCl 25 mg tablet 25 mg PO TID duloxetine 60 mg capsule,delayed release(DR/EC) 120 mg PO DAILY aripiprazole 2 mg tablet 2 mg PO DAILY topiramate 50 mg tablet 50 mg PO BID Discharge Orders: Discharge ED (Routine); Ordered 09/18/24 Ordered By: Kevin Tavera Referrals: Dominic Rea DO [Primary Care Provider] Discharge Diet: Usual diet Discharge Activity: Increase activity as tolerated Patient Instructions: Opioid Safety, Pain Management Activity Restrictions/Additional Instructions: Thank you for choosing [facility] for your healthcare needs today. It is very important that you follow up as instructed or that you return to the Emergency Department should you have concerns or if your condition changes or worsens in any way. You were seen in the emergency room with concern for a possible stroke. Your stroke score was not significant your CT of your head was negative. Based on your exam your symptoms do not believe you had a stroke. We did discuss with us with the on-call neurologist they concurred. It is likely that your symptoms were caused by a combination of a migraine variant (atypical symptoms of a migraine) as well as side effects of medication she took for the migraine that cause sedation. The medications you took for the migraine were likely exacerbated by some of the other prescription medications that you are taking which resulted in the sedation and other symptoms of generalized weakness. Recommend that you follow-up with your doctor to review your medications. Print Language: Maori Coding Level of Care Code ED Pneumatic Systems Operator for Aldo Miller
[2024-09-18 10:48] VITALS: BP 143/90; PULSE 78; RESP 17; TEMP 36.6; O2SAT 100
--- NOTE | 2024-09-18 10:54 | ECG_ITS ---
[facility] Test Date: 2024-09-18 Pat Name: Farrah Robles Department: Room: Gender: Female Medical Education Coordinator: : 1980 Requested By: Kevin Eddy Order Number: [id number] Rui MD: Tres Hanna M.D. Measurements Intervals [place] Rate: 75 P: 76 ME: 124 QRS: 78 QRSD: 74 T: 71 QT: 440 QTc: 491 Interpretive Statements SINUS RHYTHM VOLTAGE CRITERIA FOR LVH [MEETS CRITERIA IN ONE OF: R(aVL), S(V1), R(V5), R(V5/V6)+S(V1)] No previous ECG available for comparison Electronically Signed On 09-23-2024 10:16:01 CDT by Tres Hanna M.D. [email or web address]
[2024-09-18 10:55] LABS: Glucose Point of Care 103 mg/dL (70-110)
[2024-09-18 10:59] LABS: Basophils % 0.3 %; Eosinophils # 0.2 10^3/uL (0.0-0.8); Eosinophils % 3.2 %; Lymphocytes # 1.7 10^3/uL (0.8-4.8); Lymphocytes % 26.8 %; Mean Corpuscular HGB Conc 32.8 g/dL (30-55); Mean Corpuscular Hemoglobin 32.5 pg (27-33); Mean Corpuscular Volume 99.3 fl (85-98); Mean Platelet Volume 9.7 fL (7.4-10.4); Monocytes # 0.6 10^3/uL (0.2-0.9); Monocytes % 8.9 %; Neutrophils # 3.79 10^3/uL (1.8-7.7); Neutrophils % 60.5 %; Nucleated Red Blood Cells % 0 %; Platelet Count 296 10^3/cmm (157-399); Red Blood Count 4.03 10^6/uL (3.85-5.65); Red Cell Distribution Width 13.4 % (12.1-15.1); White Blood Count 6.27 10^3/uL (3.29-11.43)
[2024-09-18 11:05] VITALS: BP 145/87
[2024-09-18 11:11] LABS: INR 0.85 (0.8-1.2)
[2024-09-18 11:12] LABS: Partial Thromboplastin Time 21.2 SECONDS (23.9-36.7)
[2024-09-18 11:21] LABS: Alanine Aminotransferase 20 U/L (0-33); Albumin Level 4.2 g/dL (3.5-5.2); Alkaline Phosphatase 134 U/L (35-105); Aspartate Amino Transferase 15 U/L (0-32); Blood Urea Nitrogen 9 mg/dL (6-20); Calcium 9.2 mg/dL (8.5-10.5); Carbon Dioxide 28 mmol/L (22-29); Chloride 104 mmol/L (98-107); Creatinine Clr Calc Pharmacy 106.4539; Globulin 2.6 g/dL (1.3-4.6); Glomerular Filtration Rate 108.1 mL/min (90-130); Glucose 93 mg/dL (65-115); Osmolality Calculated 296 mOsm/kg (285-295); Sodium 144 mmol/L (136-145); Total Bilirubin 0.2 mg/dL (0.15-1.2); Total Protein 6.8 g/dL (6.6-8.7)
[2024-09-18] MEDS: valproic acid inj 500 MG in sodium chloride 0.9% 50 ML 55 MG IV (11:27)
[2024-09-18 11:35] LABS: Bilirubin Urine Negative (Negative); Blood Urine Negative (Negative); Glucose Urine UA Negative (Normal); Ketones Urine Negative (Negative); Leukocyte Esterase Urine Negative (Negative); Nitrate Urine Negative (Negative); Protein Urine Negative (Negative); Specific Gravity, Urine 1.016 (1.005-1.030); Urine Appearance Clear (CLEAR); Urine Color Yellow (Yellow); Urobilinogen Urine 0.2 mg/dL (Negative); pH Urine 5.5 (5-7)
[2024-09-18 11:38] LABS: Add Urine Microscopic? YES; Bacteria Urine 1+ /hpf; Hyaline Casts Urine 0-4 /lpf; RBC Urine 0-2 /hpf (0-2); Squamous Epithelial Cell Urine 0-5 /hpf (0-5); WBC Urine 0-5 /hpf (0-5)
[2024-09-18 11:42] LABS: Add Urine Culture? No; Amphetamines Screen Urine Positive (Negative); Barbiturates Screen Urine Positive (Negative); Benzodiazepines Screen Urine Negative (Negative); Cocaine Screen Urine Negative (Negative); Opiate Screen Urine Negative (Negative); PCP Screen Urine Negative (Negative); THC Screen Urine Negative (Negative)
[2024-09-18 11:59] VITALS: PULSE 79; RESP 17; O2SAT 99
[2024-09-18 13:02] VITALS: BP 128/77; PULSE 82; RESP 14; O2SAT 99
[2024-09-18 13:15] VITALS: BP 128/77; PULSE 79; O2SAT 100
== END 2024-09-18 13:18 | disposition home or self-care (01) ==
PROVIDERS: Emergency Provider Family Medicine; PCP Family Medicine
DX: G43.909 Migraine, unspecified, not intractable, without status migrainosus (principal); T50.905A Adverse effect of unspecified drugs, medicaments and biological substances, initial encounter; X58.XXXA Exposure to other specified factors, initial encounter
CPT/HCPCS: 36415; 36416; 70450; 80053; 80306; 81001; 82962; 85025; 85610; 85730; 93005; 96374; 99285; J3490

== ENCOUNTER → 2025-01-28 08:12 | Outpatient (BNVA) | payer MEDICAID, SELFPAY | PROVIDERS: PCP Family Medicine; Visit Provider Orthopaedic Surgery | DX: M48.02 Spinal stenosis, cervical region (principal); M48.061 Spinal stenosis, lumbar region without neurogenic claudication | CPT/HCPCS: 72050; 72110 ==

== ENCOUNTER → 2025-02-05 14:56 | Outpatient (BNVA) | payer MEDICAID, SELFPAY | PROVIDERS: PCP Family Medicine; Visit Provider Nurse Practitioner | DX: Z20.2 Contact with and (suspected) exposure to infections with a predominantly sexual mode of transmission (principal); R39.9 Unspecified symptoms and signs involving the genitourinary system | CPT/HCPCS: 81000; 87086; 87491; 87591; 87661 ==